=== PATIENT | female | born 1955 | race Caucasian/White ===

== ENCOUNTER 2022-09-24 18:52 | Emergency (ER) | payer BC, SELFPAY ==
--- NOTE | ~2022-09-24 | XR_ITS ---
EXAMINATION: XR chest 2V Exam Date/Time: 09/24/2022 19:04 CDT HISTORY: SOB, fatigue. Non productive cough since thurs Comparison: None available. RESULT: Lines, tubes, and devices: None. Lungs and pleura: Clear. Linear scar in left lower medial lung. Cardiomediastinal silhouette: Unremarkable. Other: No acute osseous or upper abdominal finding. IMPRESSION: No acute cardiopulmonary process. Reviewed, dictated and finalized at location K.
--- NOTE | 2022-09-24 18:54 | ED.URI ---
HPI - URI/Sore Throat General Chief Complaint: Upper Respiratory Infection Stated Complaint: cough,shortness of breath,congestion,fatigue Time Seen by Provider: 09/24/22 18:54 Source: patient Mode of arrival: ambulatory Limitations: no limitations History of Present Illness HPI Narrative: Ms. Lazo is a 58-year-old female patient presenting to the clinic today with complaints of shortness of breath, non-productive cough, congestion, and fatigue x 4 days. She reports that she has possibly had fever and chills as well. Denies any sore throat. Has done at home COVID test on and today and both were negative. No history of COPD or asthma. She is a nonsmoker. MD elicited complaint: sore throat and nasal congestion Related Data Home Medications Medication Instructions Recorded Confirmed simvastatin 20 mg tablet 20 mg PO DAILY 09/24/22 09/24/22 Allergies Allergy/AdvReac Type Severity Reaction Status Date / Time Sulfa (Sulfonamide Allergy Hives Verified 09/24/22 19:01 Antibiotics) Review of Systems Review of Systems: Pertinent positives per HPI. Patient denies any rash, headache, visual changes, dizziness, chest pain, palpitations, nausea, vomiting, diarrhea, constipation, abdominal pain, or any urinary issues. PMFSH Comments At the time of my signature, I reviewed and agree with the nursing past medical, surgical, social, and family history. There is no relevant family history pertinent to the patient complaint. Exam Narrative: General: Well-developed, well nourished, in no apparent distress Head: Normocephalic, atraumatic Eyes: Pupils equally round and reactive to light bilaterally, EOM intact, sclera and conjunctive clear, no discharge, lids normal Ears: TMs intact and clear, ear canals clear, no drainage, grossly hearing normal. Nose: Nares patent, clear nasal discharge, no inflammation, no sinus tenderness. Mouth: Oral pharynx without lesions or masses, good dentition, MMM. Neck: Supple, trachea midline, no enlargement of anterior or posterior cervical nodes, no thyroid masses or goiter palpable. Cardio: Regular rate and rhythm, s1 and s2 normal, no murmur appreciated. Resp: Expiratory rhonchi/wheezing at the end of expiration throughout lung hein, no rales or rubs Course Course Emergency Course: Portions of this record may have been created with voice recognition software. Level of Care: Express Care Visit Vital Signs Vital signs: Vital signs reviewed MDM - URI/Sore Throat MDM Narrative Medical decision making narrative: At the time of visit patient is resting comfortably on the exam table. Influenza testing was negative in the clinic and chest x-ray was negative for any pneumonia. I suspect patient has bronchitis. Supportive measures were discussed with the patient she voiced understanding of discharge instructions. Prescription for prednisone and albuterol inhaler was sent to the pharmacy and supportive measures were discussed with the patient she voiced understanding discharge instructions agrees to treatment plan. Differential Diagnosis Differential diagnosis: Likely upper respiratory infection, otitis media, sinusitis, viral infection, bronchitis, influenza, pharyngitis and other (COVID) Discharge Plan Discharge Clinical Impression: Bronchitis, Viral infection Patient Disposition: Home, Self-Care Condition: Stable Instructions: Antibiotic Form, Acute Bronchitis (ED), Viral Syndrome (ED) Additional Instructions: Chest x-ray was negative for any signs of pneumonia. Take prescription medications only as prescribed-prednisone and albuterol inhaler Increase fluids and stay well hydrated Tylenol/motrin for pain/fever Flonase and OTC antihistamines as directed Vicks vapor rub to open sinuses Sinus rinses for congestion Cepacol spray, cough drops, throat lozenges, warm tea with honey/lemon, gargle salt water to soothe throat BRAT diet for diar
[2022-09-24 19:01] VITALS: BP 127/82; PULSE 95; RESP 16; TEMP 36.6; O2SAT 96
[2022-09-24 19:03] VITALS: BP 127/82; PULSE 95; RESP 16; TEMP 36.6; O2SAT 96
== END 2022-09-24 19:37 | disposition home or self-care (01) ==
LOC: EXPGOSH 18:57
PROVIDERS: Emergency Provider Nurse Practitioner Family
DX: J40 Bronchitis, not specified as acute or chronic (principal); B34.9 Viral infection, unspecified; E78.00 Pure hypercholesterolemia, unspecified
CPT/HCPCS: 71046; 87804; 99213; G0463